=== PATIENT | female | born 1970 | race American Indian/Alaskan Native ===

== ENCOUNTER 2017-01-21 12:22 | Emergency (ER) | payer SELFPAY ==
[2017-01-21 13:00] LABS: Basophils % (Auto) 0.5 % (0.0-1.8); Hematocrit 40.1 % (30.3-42.9); Hemoglobin 13.1 gm/dl (10.1-14.3); Mean Corpuscular HGB Conc 33 % (30-34); Mean Corpuscular Hemoglobin 28 pg (28-32); Mean Corpuscular Volume 86 fl (79-97); Platelet Count 282 K/mm3 (140-440); Red Blood Count 4.65 M/mm3 (3.65-5.03); Red Cell Distribution Width 13.7 % (13.2-15.2); White Blood Count 7.7 K/mm3 (4.5-11.0)
[2017-01-21 13:22] LABS: Alanine Aminotransferase 23 units/L (7-56); Albumin 4.1 g/dL (3.9-5); Albumin/Globulin Ratio 1.2 %; Alkaline Phosphatase 53 units/L (35-129); Anion Gap 20 mmol/L; BUN/Creatinine Ratio 12.85; Blood Urea Nitrogen 9 mg/dL (7-17); Calcium 9.3 mg/dL (8.4-10.2); Carbon Dioxide 22 mmol/L (22-30); Chloride 99.5 mmol/L (98-107); Glucose 98 mg/dL (65-100); Lipase 20 units/L (13-60); Sodium 137 mmol/L (137-145); Total Protein 7.4 g/dL (6.3-8.2)
[2017-01-21] MEDS ORDERED: MORPHINE IV ONE (14:34)
[2017-01-21] MEDS ORDERED: ZOFRAN IV ONE (14:34)
[2017-01-21] MEDS ORDERED: NACL 0.9% 1000 ML 1,000 ML IV ONE (14:34)
[2017-01-21 14:40] LABS: Bacteria,Urine 1+ /HPF (Negative); Mucus,Urine FEW /HPF
[2017-01-21 14:49] LABS: Bilirubin,Urine Negative (Negative); Blood,Urine Negative (Negative); Ketones,Urine Negative (Negative)
[2017-01-21 14:50] LABS: Leukocyte Esterase,Urine Negative (Negative); Nitrite,Urine Negative (Negative); Protein,Urine <15 mg/dL mg/dL (Negative)
--- NOTE | 2017-01-21 15:38 | Cat Scan Report ---
CT OF THE ABDOMEN AND PELVIS WITHOUT CONTRAST HISTORY: Left upper quadrant abdominal pain. TECHNIQUE: Helical CT without contrast. Sagittal and coronal reformatted images. FINDINGS: Within the limits of a noncontrast exam, the abdominal and pelvic viscera are within normal limits. The liver, biliary system, pancreas, spleen, kidneys, adrenal glands and bladder are unremarkable. The bowel loops are normal caliber and wall thickness. Normal appendix. The aorta is normal caliber. No ascites, bulky adenopathy or inflammatory changes. Hysterectomy changes are suspected. No adnexal cyst or mass. The lung bases are clear. Normal heart size. No suspicious bony lesion. IMPRESSION: Unremarkable noncontrast CT of the abdomen and pelvis.
[2017-01-21] MEDS ORDERED: TORADOL IV ONE (15:43)
--- NOTE | 2017-01-21 15:47 | Emergency Department Report ---
ED Abdominal Pain HPI - General Chief Complaint: Abdominal Pain Stated Complaint: SYNCOPE / N/V Time Seen by Provider: 01/21/17 14:33 Source: patient, EMS Mode of arrival: Stretcher Limitations: No Limitations - History of Present Illness Initial Comments: Patient is a 46-year-old female who presents with abdominal pain, nausea and vomiting. Patient states that earlier this morning as she was standing up she became lightheaded and then very nauseous. The pain is located in her left upper quadrant an 8/10 nothing makes the pain better or worse. Patient states that the pain does not radiate at this achy pain. Patient has had 3 episodes of emesis this been nonbloody nonbilious. Patient then went to the restroom and had a syncopal episode. Patient states that she did not hit her head at all. Severity scale (0 -10): 8 - Related Data Previous Rx's Medication Instructions Recorded Last Taken Type Ondansetron [Zofran TAB] 4 mg PO Q8HR PRN #15 tablet 01/21/17 Unknown Rx Allergies Allergy/AdvReac Type Severity Reaction Status Date / Time iodine Allergy Unknown Verified 01/21/17 12:45 Penicillins Allergy Unknown Verified 01/21/17 12:45 hair dye Allergy Shortness Uncoded 01/21/17 12:45 of Breath seafood Allergy Anaphylaxis Uncoded 01/21/17 12:45 ED Review of Systems ROS: Stated complaint: SYNCOPE / N/V Other details as noted in HPI Constitutional: denies: chills, fever Eyes: denies: eye pain, eye discharge, vision change ENT: denies: ear pain, throat pain Respiratory: denies: cough, shortness of breath, wheezing Cardiovascular: denies: chest pain, palpitations Endocrine: no symptoms reported Gastrointestinal: abdominal pain, nausea, vomiting Genitourinary: denies: urgency, dysuria, discharge Musculoskeletal: denies: back pain, joint swelling, arthralgia Skin: denies: rash, lesions Neurological: other (syncope) Psychiatric: denies: anxiety, depression Hematological/Lymphatic: denies: easy bleeding, easy bruising ED Past Medical Hx - Past Medical History Previous Medical History?: No - Surgical History Past Surgical History?: Yes Additional Surgical History: hysterectomy - Social History Smoking Status: Never Smoker Substance Use Type: None - Medications Home Medications: Home Medications Medication Instructions Recorded Confirmed Last Taken Type Ondansetron [Zofran TAB] 4 mg PO Q8HR PRN #15 tablet 01/21/17 Unknown Rx ED Physical Exam - General Limitations: No Limitations General appearance: alert, in no apparent distress - Head Head exam: Present: atraumatic, normocephalic - Eye Eye exam: Present: normal appearance, EOMI - ENT ENT exam: Present: normal exam - Neck Neck exam: Present: normal inspection - Respiratory Respiratory exam: Present: normal lung sounds bilaterally, respiratory distress - Cardiovascular Cardiovascular Exam: Present: regular rate, normal rhythm - GI/Abdominal GI/Abdominal exam: Present: soft, other (LUQ tenderness ) - Extremities Exam Extremities exam: Present: normal inspection, full ROM - Back Exam Back exam: Present: normal inspection - Neurological Exam Neurological exam: Present: alert, oriented X3 - Psychiatric Psychiatric exam: Present: normal affect, normal mood - Skin Skin exam: Present: warm, dry ED Course Vital Signs 01/21/17 01/21/17 12:40 13:01 Temperature 98.2 F Pulse Rate 65 Respiratory 16 16 Rate Blood Pressure 155/84 O2 Sat by Pulse 99 100 Oximetry - Reevaluation(s) Reevaluation #1: 01/21/17 15:53 CT scans unremarkable. discused diagnostic findings patient. Pt's pain is now a 3/10. We'll send patient home discussed that if patient has increased pain abdominal pain or has worsening signs or symptoms to come back to the emergency department. We'll give patient oral analgesic medication. ED Medical Decision Making - Lab Data Result diagrams: 01/21/17 12:51 01/21/17 12:51 Laboratory Results - last 24 hr 01/21/17 01/21/17 01/21/17 12:51 12:51 13:38 WBC 7.7 RBC 4.65 Hgb 13.1 Hct 40.1 MCV 86 MCH 28 MCHC 33 RDW 13.7 Plt Count 282 Lymph % (Auto) 19.3 [place] % (Auto) 6.8 Eos % (Auto) 3.0 Baso % (Auto) 0.5 Lymph # 1.5 [place] # 0.5 Eos # 0.2 Baso # 0.0 Seg Neutrophils % 70.4 H Seg Neutrophils # 5.4 Sodium 137 Potassium 4.0 Chloride 99.5 Carbon Dioxide 22 Anion Gap 20 BUN 9 Creatinine 0.7 Estimated GFR > 60 BUN/Creatinine Ratio 12.85 Glucose 98 Calcium 9.3 Total Bilirubin 0.40 AST 18 ALT 23 Alkaline Phosphatase 53 Total Protein 7.4 Albumin 4.1 Albumin/Globulin Ratio 1.2 Lipase 20 Urine Color Straw Urine Turbidity Clear Urine pH 7.0 Ur Specific [place] 1.010 Urine Protein <15 mg/dl Urine Glucose (UA) Negative Urine Ketones Negative Urine Blood Negative Urine Nitrite Negative Ur Reducing Substances Not Reportable Urine Bilirubin Negative Urine Ictotest Not Reportable Urine Urobilinogen 0.0 Ur Leukocyte Esterase Negative Urine WBC (Auto) 1.0 Urine RBC (Auto) 2.0 U Epithel Cells (Auto) 4.0 Urine Bacteria (Auto) 1+ Urine Mucus Few - EKG Data EKG shows normal: sinus rhythm Rate: normal - EKG Data When compared to previous EKG there are: previous EKG unavailable Interpretation: LVH 01/21/17 15:50 left axis deviation - Medical Decision Making Cdx: Pancreatitis ddx: GERD, metabolic abnormality, arrythmia will get ekg, labs, fluids, pain control and will get a CT scan of the abdomen. Critical care attestation.: If time is entered above; I have spent that time in minutes in the direct care of this critically ill patient, excluding procedure time. ED Disposition Clinical Impression: Nausea & vomiting, Abdominal pain Syncope Qualifiers: Syncope type: vasovagal syncope Qualified Code(s): R55 - Syncope and collapse Disposition: - TO HOME OR SELFCARE Is pt being admited?: No Does the pt Need Aspirin: No Condition: Good Instructions: Abdominal Pain (ED) Prescriptions: Ondansetron [Zofran TAB] 4 mg PO Q8HR PRN #15 tablet PRN Reason: Nausea And Vomiting Referrals: LONG ASHTON MD [Primary Care Provider] - 3-5 Days Time of Disposition: 15:59
[2017-01-21] MEDS ORDERED: NORCO 5/325 PO ONE (15:56)
[2017-01-21 16:49] VITALS: BP 146/79
== END 2017-01-21 16:00 | disposition home or self-care (01) ==
LOC: ED 12:22
DX: R11.2 Nausea with vomiting, unspecified (principal); R10.12 Left upper quadrant pain; R55 Syncope and collapse; Z88.0 Allergy status to penicillin; Z91.013 Allergy to seafood; Z88.8 Allergy status to other drugs, medicaments and biological substances
CPT/HCPCS: 36415; 74176; 80053; 81001; 83690; 85025; 93005; 93010; 96361; 96374; 96375; 99284; J1885; J2405; J7030; J2270

== ENCOUNTER 2017-10-12 11:13 | Outpatient (CLI) | payer MEDICAID ==
--- NOTE | 2017-10-12 11:58 | Mammography Report ---
BILATERAL DIGITAL SCREENING MAMMOGRAM with CAD : 10/12/17 11:13:00 CLINICAL: Routine screening. COMPARISON:None available. However, she apparently had a mammogram in [facility] in 2014. FINDINGS: The breasts are heterogeneously dense with many bilateral too numerous to count oval circumscribed tightly grouped high density masses. Many of the masses have eggshell calcifications. No suspicious mass or architectural distortion. IMPRESSION: Too numerous to count bilateral circumscribed masses which are consistent with benign silicone injection granulomas. These masses severely limit the sensitivity of mammography for breast cancer screening. Recommend a comprehensive assessment of breast cancer risk and bilateral screening MRI especially if she is determined to have greater than normal risk for breast cancer. BI-RADS CATEGORY: 2 -- Benign We will attempt to obtain a prior mammogram for comparison. COMMENT: Patient follow-up letters are generated by our [employer] application.
== END 2017-10-12 11:14 | disposition home or self-care (01) ==
LOC: SPVWC 11:13
PROVIDERS: ATTEND Obstetrics & Gynecology
DX: Z12.31 Encounter for screening mammogram for malignant neoplasm of breast (principal)
CPT/HCPCS: 77067

== ENCOUNTER 2020-06-17 14:59 | Outpatient (CLI) | payer OTHER ==
--- NOTE | 2020-06-17 16:02 | Mammography Report ---
DIGITAL SCREENING MAMMOGRAM WITH CAD, 06/17/2020 CLINICAL INFORMATION / INDICATION: Routine screening mammography. MASTODYNIA TECHNIQUE: Digital bilateral 2D mammography was obtained in the craniocaudal and mediolateral obliqu e projections. This examination was interpreted with the benefit of Computer-Aided Detection analysis . COMPARISON: 10/12/17. FINDINGS: Breast Density: The breasts are heterogeneously dense, which may obscure small masses. No dominant mass, suspicious calcifications, or architectural distortion in either breast. Extensive silicone granulomas throughout both breasts are again noted. No new abnormality is seen. IMPRESSION: No mammographic evidence of malignancy. Follow up recommendation: Routine yearly BI-RADS Category 2: Benign. A "normal" or negative report should not discourage follow up or biopsy of a clinically significant f inding. A written summary of these findings will be mailed to the patient. The patient will be entered into a mammography reporting system which will generate a reminder letter for the patient's next appointmen t at the appropriate interval. The [employer] recommends yearly mammograms starting at age 40 and continuing as l hector as a woman is in good health. Breast MRI is recommended for women with an approximate 20-25% or greater lifetime risk of breast cancer, including women with a strong family history of breast or ova annika cancer or who have been treated for Hodgkin's disease. Signer Name: Leon Beyer MD Signed: 06/17/2020 3:58 PM Workstation Name: [employer]
== END 2020-06-17 15:00 | disposition home or self-care (01) ==
LOC: SPVWC 14:59
PROVIDERS: ATTEND Student in an Organized Health Care Education/Training Program
DX: R92.2 Inconclusive mammogram (principal); N64.4 Mastodynia
CPT/HCPCS: 77066

== ENCOUNTER 2020-09-17 18:12 | Emergency (ER) | payer OTHER ==
[2020-09-17] MEDS ORDERED: SODIUM CHLORIDE 0.9% 1000 ML 1,000 ML IV ONE ×2 (18:54→21:47)
--- NOTE | 2020-09-17 18:58 | Emergency Department Report ---
- General Chief complaint: Weakness Stated complaint: WEAKNESS Time Seen by Provider: 09/17/20 18:30 Source: patient, EMS Mode of arrival: Stretcher Limitations: No Limitations - History of Present Illness Initial comments: 50-year-old female no significant past medical history other than previous hysterectomy and hemorrhoid presents to the hospital planing of generalized weakness x3 days worsening today. Patient complains of lightheadedness and severe general weakness with inability to stand up or ambulate at this time. Patient even appears weak when communicating. 6 days ago she had bilateral breast reduction surgery and was prescribed antibiotic and Percocet. She has not taken the Percocet in 5 days. She has been eating and drinking appropriately. She denies nausea, vomiting, diarrhea, chest pain, shortness of breath, headache, focal weakness, focal numbness, dysuria, cough, or fever. She did have 1 bloody stool bowel movement today. Similar history of the same secondary to hemorrhoids. No previous history of colonoscopy. Severity scale (0 -10): 0 - Related Data Previous Rx's Medication Instructions Recorded Last Taken Type Ondansetron [Zofran TAB] 4 mg PO Q8HR PRN #15 tablet 01/21/17 Unknown Rx Allergies Allergy/AdvReac Type Severity Reaction Status Date / Time iodine Allergy Unknown Verified 01/21/17 12:45 Penicillins Allergy Unknown Verified 01/21/17 12:45 hair dye Allergy Shortness Uncoded 01/21/17 12:45 of Breath seafood Allergy Anaphylaxis Uncoded 01/21/17 12:45 ED Review of Systems ROS: Stated complaint: WEAKNESS Other details as noted in HPI Comment: All other systems reviewed and negative ED Past Medical Hx - Surgical History Past Surgical History?: Yes Additional Surgical History: hysterectomy and breast reducion on both bi-lateral breast - Social History Smoking Status: Unknown if ever smoked - Medications Home Medications: Home Medications Medication Instructions Recorded Confirmed Last Taken Type Ondansetron [Zofran TAB] 4 mg PO Q8HR PRN #15 tablet 01/21/17 Unknown Rx ED Physical Exam - General Limitations: No Limitations - Other Other exam information: General: Weak appearing Head: Atraumatic Eyes: normal appearance ENT: Moist mucous membranes Neck: Normal appearance, no midline tenderness Chest: Clear to auscultation bilaterally. Postsurgical breast wounds healing well without wound dehiscence, erythema, warmth, or drainage CV: Regular rate and rhythm Abdomen: Soft, normal bowel sounds, nontender, nondistended, no rebound or guarding Rectal: External hemorrhoids noted, brown stool, no gross blood, guaiac positive. No active bleeding Back: Normal inspection Extremity: Normal inspection, full range of motion Neuro: Alert O x 3, no facial asymmetry, speech clear, no gross motor sensory deficit, generalized weakness Psych: Appropriate behavior Skin: No rash ED Course Vital Signs 09/17/20 09/17/20 09/17/20 18:35 19:16 19:30 Temperature 98.1 F Pulse Rate 68 63 74 Respiratory 18 15 15 Rate Blood Pressure 144/92 148/83 Blood Pressure 144/92 [Left] O2 Sat by Pulse 100 100 99 Oximetry 09/17/20 09/17/20 09/17/20 19:35 19:46 20:00 Temperature 98.3 F Pulse Rate 69 66 65 Respiratory 16 13 23 Rate Blood Pressure 154/82 156/86 Blood Pressure 154/82 [Left] O2 Sat by Pulse 100 100 100 Oximetry 09/17/20 09/17/20 09/17/20 20:16 20:30 20:46 Temperature Pulse Rate 69 67 63 Respiratory 19 20 18 Rate Blood Pressure 158/83 144/75 144/82 Blood Pressure [Left] O2 Sat by Pulse 100 100 100 Oximetry 09/17/20 09/17/20 09/17/20 21:00 21:09 21:16 Temperature Pulse Rate 79 64 Respiratory 15 18 23 Rate Blood Pressure 126/73 128/75 Blood Pressure [Left] O2 Sat by Pulse 98 100 Oximetry 09/17/20 09/17/20 09/17/20 21:30 21:46 22:00 Temperature Pulse Rate Respiratory Rate Blood Pressure 120/74 131/76 141/78 Blood Pressure [Left] O2 Sat by Pulse 100 100 98 Oximetry 09/17/20 22:16 Temperature Pulse Rate Respiratory Rate Blood Pressure 132/74 Blood Pressure [Left] O2 Sat by Pulse 100 Oximetry ED Medical Decision Making - Lab Data Result diagrams: 09/17/20 18:57 09/17/20 18:57 Lab Results 09/17/20 09/17/20 09/17/20 Range/Units 18:57 18:57 18:57 WBC 6.7 (4.5-11.0) K/mm3 RBC 4.04 (3.65-5.03) M/mm3 Hgb 11.6 (10.1-14.3) gm/dl Hct 34.5 (30.3-42.9) % MCV 86 (79-97) fl MCH 29 (28-32) pg MCHC 34 (30-34) % RDW 13.4 (13.2-15.2) % Plt Count 330 (140-440) K/mm3 Lymph % (Auto) 31.9 (13.4-35.0) % [place] % (Auto) 9.4 H (0.0-7.3) % Eos % (Auto) 3.0 (0.0-4.3) % Baso % (Auto) 0.7 (0.0-1.8) % Lymph # (Auto) 2.2 (1.2-5.4) K/mm3 [place] # (Auto) 0.6 (0.0-0.8) K/mm3 Eos # (Auto) 0.2 (0.0-0.4) K/mm3 Baso # (Auto) 0.1 (0.0-0.1) K/mm3 Seg Neutrophils % 55.0 (40.0-70.0) % Seg Neutrophils # 3.7 (1.8-7.7) K/mm3 PT 12.2 (12.2-14.9) Sec. INR 0.92 (0.87-1.13) APTT 27.8 (24.2-36.6) Sec. Sodium 136 L (137-145) mmol/L Potassium 4.0 (3.6-5.0) mmol/L Chloride 100.2 (98-107) mmol/L Carbon Dioxide 26 (22-30) mmol/L Anion Gap 14 mmol/L BUN 10 (7-17) mg/dL Creatinine 0.7 (0.6-1.2) mg/dL Estimated GFR > 60 ml/min BUN/Creatinine Ratio 14 % Glucose 95 (65-100) mg/dL POC Glucose (70-105) mg/dL Calcium 9.0 (8.4-10.2) mg/dL Total Bilirubin < 0.20 (0.1-1.2) mg/dL AST 17 (5-40) units/L ALT 26 (7-56) units/L Alkaline Phosphatase 59 (35-129) units/L Troponin T < 0.010 (0.00-0.029) ng/mL Total Protein 6.5 (6.3-8.2) g/dL Albumin 4.0 (3.9-5) g/dL Albumin/Globulin Ratio 1.6 % TSH (0.270-4.200) mlU/mL Free T4 (0.76-1.46) ng/dL Urine Color (Yellow) Urine Turbidity (Clear) Urine pH (5.0-7.0) Ur Specific [place] (1.003-1.030) Urine Protein (Negative) mg/dL Urine Glucose (UA) (Negative) mg/dL Urine Ketones (Negative) mg/dL Urine Blood (Negative) Urine Nitrite (Negative) Urine Bilirubin (Negative) Urine Urobilinogen (<2.0) mg/dL Ur Leukocyte Esterase (Negative) Urine WBC (Auto) (0.0-6.0) /HPF Urine RBC (Auto) (0.0-6.0) /HPF U Epithel Cells (Auto) (0-13.0) /HPF Urine Mucus /HPF Urine Opiates Screen Urine Methadone Screen Ur Barbiturates Screen Ur Phencyclidine Scrn Ur Amphetamines Screen U Benzodiazepines Scrn Urine Cocaine Screen U Marijuana (THC) Screen Drugs of Abuse Note 09/17/20 09/17/20 09/17/20 Range/Units 18:57 19:13 19:38 WBC (4.5-11.0) K/mm3 RBC (3.65-5.03) M/mm3 Hgb (10.1-14.3) gm/dl Hct (30.3-42.9) % MCV (79-97) fl MCH (28-32) pg MCHC (30-34) % RDW (13.2-15.2) % Plt Count (140-440) K/mm3 Lymph % (Auto) (13.4-35.0) % [place] % (Auto) (0.0-7.3) % Eos % (Auto) (0.0-4.3) % Baso % (Auto) (0.0-1.8) % Lymph # (Auto) (1.2-5.4) K/mm3 [place] # (Auto) (0.0-0.8) K/mm3 Eos # (Auto) (0.0-0.4) K/mm3 Baso # (Auto) (0.0-0.1) K/mm3 Seg Neutrophils % (40.0-70.0) % Seg Neutrophils # (1.8-7.7) K/mm3 PT (12.2-14.9) Sec. INR (0.87-1.13) APTT (24.2-36.6) Sec. Sodium (137-145) mmol/L Potassium (3.6-5.0) mmol/L Chloride (98-107) mmol/L Carbon Dioxide (22-30) mmol/L Anion Gap mmol/L BUN (7-17) mg/dL Creatinine (0.6-1.2) mg/dL Estimated GFR ml/min BUN/Creatinine Ratio % Glucose (65-100) mg/dL POC Glucose 79 (70-105) mg/dL Calcium (8.4-10.2) mg/dL Total Bilirubin (0.1-1.2) mg/dL AST (5-40) units/L ALT (7-56) units/L Alkaline Phosphatase (35-129) units/L Troponin T (0.00-0.029) ng/mL Total Protein (6.3-8.2) g/dL Albumin (3.9-5) g/dL Albumin/Globulin Ratio % TSH 0.981 (0.270-4.200) mlU/mL Free T4 1.02 (0.76-1.46) ng/dL Urine Color Yellow (Yellow) Urine Turbidity Clear (Clear) Urine pH 6.0 (5.0-7.0) Ur Specific [place] 1.012 (1.003-1.030) Urine Protein <15 mg/dl (Negative) mg/dL Urine Glucose (UA) Neg (Negative) mg/dL Urine Ketones Neg (Negative) mg/dL Urine Blood Neg (Negative) Urine Nitrite Neg (Negative) Urine Bilirubin Neg (Negative) Urine Urobilinogen < 2.0 (<2.0) mg/dL Ur Leukocyte Esterase Neg (Negative) Urine WBC (Auto) 1.0 (0.0-6.0) /HPF Urine RBC (Auto) 1.0 (0.0-6.0) /HPF U Epithel Cells (Auto) 3.0 (0-13.0) /HPF Urine Mucus Few /HPF Urine Opiates Screen Urine Methadone Screen Ur Barbiturates Screen Ur Phencyclidine Scrn Ur Amphetamines Screen U Benzodiazepines Scrn Urine Cocaine Screen U Marijuana (THC) Screen Drugs of Abuse Note 09/17/20 Range/Units 19:38 WBC (4.5-11.0) K/mm3 RBC (3.65-5.03) M/mm3 Hgb (10.1-14.3) gm/dl Hct (30.3-42.9) % MCV (79-97) fl MCH (28-32) pg MCHC (30-34) % RDW (13.2-15.2) % Plt Count (140-440) K/mm3 Lymph % (Auto) (13.4-35.0) % [place] % (Auto) (0.0-7.3) % Eos % (Auto) (0.0-4.3) % Baso % (Auto) (0.0-1.8) % Lymph # (Auto) (1.2-5.4) K/mm3 [place] # (Auto) (0.0-0.8) K/mm3 Eos # (Auto) (0.0-0.4) K/mm3 Baso # (Auto) (0.0-0.1) K/mm3 Seg Neutrophils % (40.0-70.0) % Seg Neutrophils # (1.8-7.7) K/mm3 PT (12.2-14.9) Sec. INR (0.87-1.13) APTT (24.2-36.6) Sec. Sodium (137-145) mmol/L Potassium (3.6-5.0) mmol/L Chloride (98-107) mmol/L Carbon Dioxide (22-30) mmol/L Anion Gap mmol/L BUN (7-17) mg/dL Creatinine (0.6-1.2) mg/dL Estimated GFR ml/min BUN/Creatinine Ratio % Glucose (65-100) mg/dL POC Glucose (70-105) mg/dL Calcium (8.4-10.2) mg/dL Total Bilirubin (0.1-1.2) mg/dL AST (5-40) units/L ALT (7-56) units/L Alkaline Phosphatase (35-129) units/L Troponin T (0.00-0.029) ng/mL Total Protein (6.3-8.2) g/dL Albumin (3.9-5) g/dL Albumin/Globulin Ratio % TSH (0.270-4.200) mlU/mL Free T4 (0.76-1.46) ng/dL Urine Color (Yellow) Urine Turbidity (Clear) Urine pH (5.0-7.0) Ur Specific [place] (1.003-1.030) Urine Protein (Negative) mg/dL Urine Glucose (UA) (Negative) mg/dL Urine Ketones (Negative) mg/dL Urine Blood (Negative) Urine Nitrite (Negative) Urine Bilirubin (Negative) Urine Urobilinogen (<2.0) mg/dL Ur Leukocyte Esterase (Negative) Urine WBC (Auto) (0.0-6.0) /HPF Urine RBC (Auto) (0.0-6.0) /HPF U Epithel Cells (Auto) (0-13.0) /HPF Urine Mucus /HPF Urine Opiates Screen Negative Urine Methadone Screen Negative Ur Barbiturates Screen Negative Ur Phencyclidine Scrn Negative Ur Amphetamines Screen Negative U Benzodiazepines Scrn Negative Urine Cocaine Screen Negative U Marijuana (THC) Screen Negative Drugs of Abuse Note Disclamer - EKG Data -: EKG Interpreted by De EKG shows normal: sinus rhythm, ST-T waves (NO STEMI) Rate: normal (64) - Medical Decision Making Patient had rested in the ED and received 2 L of normal saline and provided food and states she feels much better and no longer has generalized weakness. Patient able to ambulate without assistance. Labs and urine unremarkable. No signs of infection or sepsis. Patient will be discharged home and encouraged to continue adequate p.o. and fluid intake. She did receive Toradol for postsurgical pain which improved her pain. Critical Care Time: No Critical care attestation.: If time is entered above; I have spent that time in minutes in the direct care of this critically ill patient, excluding procedure time. ED Disposition Clinical Impression: Generalized weakness, Dehydration Disposition: DC-01 TO HOME OR SELFCARE Is pt being admited?: No Does the pt Need Aspirin: No Condition: Stable Instructions: Weakness Additional Instructions: Follow-up with your doctor or doctor/clinic provided. Return if symptoms worsen as indicated by your discharge instructions. Referrals: PRIMARY CARE, [Primary Care Provider] - 3-5 Days CARBUCCIA,MYA, MD [Staff Physician] - 3-5 Days (Primary care doctor) Time of Disposition: 23:50
[2020-09-17 19:58] LABS: Alanine Aminotransferase 26 units/L (7-56); Blood Urea Nitrogen 10 mg/dL (7-17); Free T4 (Free Thyroxine) 1.02 ng/dL (0.76-1.46); Hemolysis Index 6; INR 0.92 (0.87-1.13); Partial Thromboplastin Time 27.8 Sec. (24.2-36.6)
[2020-09-17 19:58] LABS: Bilirubin,Urine NEG (Negative); Blood,Urine NEG (Negative); Color,Urine Yellow (Yellow); Mucus,Urine FEW /HPF; Protein,Urine <15 mg/dL mg/dL (Negative); Urobilinogen,Urine < 2.0 mg/dL (<2.0)
[2020-09-17 20:01] LABS: Basophils # (Auto) 0.1 K/mm3 (0.0-0.1); Basophils % (Auto) 0.7 % (0.0-1.8); Eosinophils # (Auto) 0.2 K/mm3 (0.0-0.4); Hematocrit 34.5 % (30.3-42.9); Hemoglobin 11.6 gm/dl (10.1-14.3); Lymphocytes # (Auto) 2.2 K/mm3 (1.2-5.4); Lymphocytes % (Auto) 31.9 % (13.4-35.0); Mean Corpuscular HGB Conc 34 % (30-34); Mean Corpuscular Volume 86 fl (79-97); Monocytes # (Auto) 0.6 K/mm3 (0.0-0.8); Monocytes % (Auto) 9.4 % (0.0-7.3); Platelet Count 330 K/mm3 (140-440); Red Blood Count 4.04 M/mm3 (3.65-5.03); Red Cell Distribution Width 13.4 % (13.2-15.2)
[2020-09-17 20:09] LABS: Amphetamine Screen,Urine Negative; Benzodiazepines Screen,Urine Negative; Cannabinoid Screen,Urine Negative; Cocaine Screen,Urine Negative; Methadone Screen,Urine Negative; Opiate Screen,Urine Negative
[2020-09-17 20:09] LABS: BUN/Creatinine Ratio 14
[2020-09-17] MEDS ORDERED: KETOROLAC 30 MG/1 ML INJ IV ONE (21:03)
[2020-09-18 00:40] VITALS: BP 116/84
--- NOTE | 2020-09-18 11:21 | Electrocardiograph Report ---
[facility] Test Date: 2020-09-17 Test Time: 19:48:57 Pat Name: ZOE HERNANDEZ Department: Room: Gender: F Functional Architect: LOTUS : 1970 Requested By: CAL NUNEZ Order Number: [id number] Reading MD: Reza Cody Measurements Intervals [place] Rate: 64 P: 60 MS: 189 QRS: 12 QRSD: 100 T: 30 QT: 415 QTc: 428 Interpretive Statements Sinus rhythm No previous ECG available for comparison Electronically Signed On 09-18-2020 8:21:21 PDT by Reza Cody
== END 2020-09-18 00:05 | disposition home or self-care (01) ==
LOC: ED 18:12
DX: M62.81 Muscle weakness (generalized) (principal); E86.0 Dehydration; Z79.899 Other long term (current) drug therapy; Z88.0 Allergy status to penicillin; Z88.8 Allergy status to other drugs, medicaments and biological substances
CPT/HCPCS: 36415; 80053; 80307; 81001; 82271; 82962; 84439; 84443; 84484; 85025; 85610; 85730; 93005; 96361; 96374; 99284; J1885; J7030

== ENCOUNTER 2021-08-04 14:12 | Outpatient (CLI) | payer OTHER ==
--- NOTE | 2021-08-06 17:30 | Mammography Report ---
DIGITAL SCREENING MAMMOGRAM WITH CAD, 08/04/2021 CLINICAL INFORMATION / INDICATION: Routine screening mammography. Z12.31 TECHNIQUE: Digital bilateral 2D mammography was obtained in the craniocaudal and mediolateral obliqu e projections. This examination was interpreted with the benefit of Computer-Aided Detection analysis . COMPARISON: 10/12/2017 FINDINGS: Breast Density: The breasts are heterogeneously dense, which may obscure small masses. No dominant mass, suspicious calcifications, or architectural distortion in either breast. There are numerous small calcified nodules seen throughout the breast parenchyma bilaterally. The cruz earance is consistent with multiple silicone injections percutaneously. This of course limits detecti on of malignancy mammographically. Compared to the 2020 mammogram the patient has undergone interval breast reduction. There is no other significant interval change. IMPRESSION: No mammographic evidence of malignancy. However, please note that the innumerable silicon e granulomas present throughout both breasts severely limit detection of small malignancies. Follow up recommendation: Routine yearly BI-RADS Category 2: BENIGN. A "normal" or negative report should not discourage follow up or biopsy of a clinically significant f inding. A written summary of these findings will be mailed to the patient. The patient will be entered into a mammography reporting system which will generate a reminder letter for the patient's next appointmen t at the appropriate interval. The [employer] recommends yearly mammograms starting at age 40 and continuing as l hector as a woman is in good health. Breast MRI is recommended for women with an approximate 20-25% or greater lifetime risk of breast cancer, including women with a strong family history of breast or ova annika cancer or who have been treated for Hodgkin's disease. Signer Name: Diann Martínez MD Signed: 08/06/2021 5:26 PM Workstation Name: [employer]
== END 2021-08-04 14:13 | disposition home or self-care (01) ==
LOC: SPVWC 14:12
PROVIDERS: ATTEND Registered Nurse
DX: Z12.31 Encounter for screening mammogram for malignant neoplasm of breast (principal)
CPT/HCPCS: 77067